=== PATIENT | female | born 1935 | race Caucasian/White ===

== ENCOUNTER 2022-03-25 07:00 | Outpatient (CLI) | payer MEDICARE, OTHER | END 2022-03-25 23:59 | disposition home or self-care (01) | LOC: LAB.S 07:00 | PROVIDERS: ATTEND Physician Assistant | DX: N39.0 Urinary tract infection, site not specified (principal) | CPT/HCPCS: 87077; 87086; 87181 ==

== ENCOUNTER 2022-05-16 10:20 | Outpatient (CLI) | payer MEDICARE, OTHER | END 2022-05-16 23:59 | disposition critical access hospital (66) | LOC: EMS 10:20 | DX: R53.81 Other malaise (principal); R60.0 Localized edema; M79.661 Pain in right lower leg; R73.9 Hyperglycemia, unspecified | CPT/HCPCS: A0425; A0427 ==

== ENCOUNTER 2022-05-16 10:47 | Inpatient (IN) | payer MEDICARE, OTHER ==
--- OUTSIDE RECORDS SUMMARY | 2022-05-16 11:07 | EXTERNAL MEDICAL SUMMARY RPT | Continuity of Care Document ---
:1935 Author Organization [facility] Address [address] [place] [address] Phone Care Team Providers Name Role Phone Unavailable Unavailable Unavailable Siddharth Harrison, Deuce Unavailable Unavailable Jose, Provider Unavailable Unavailable Allergies and Intolerances date description facility type (no date) [facility] (no date) [facility]unknown[facility] Encounters No information. Functional Status No information. Immunizations No information. Medications date description facility 2022-03-25 00:00 cephalexin [facility] 2022-03-25 00:00 cephalexin [facility] 2022-03-25 00:00 metoprolol tartrate [facility]-In [facility] 2022-03-26 00:00 metoprolol tartrate [facility]In [facility] 2022-03-28 00:00 metoprolol tartrate [facility]In [facility] 2022-03-29 00:00 metoprolol tartrate [facility]In [facility] 2022-03-25 00:00 hydroxychloroquine [facility] 2022-03-26 00:00 hydroxychloroquine [facility] [place] [facility] 2022-03-28 00:00 hydroxychloroquine [facility] [facility] 2022-03-29 00:00 hydroxychloroquine [facility] 2022-03-25 00:00 levothyroxine [facility] [place] [facility] 2022-03-26 00:00 [facility] 2022-03-28 00:00 levothyroxine [facility] 2022-03-29 00:00 levothyroxine [facility] 2022-03-25 00:00 prednisone [facility] 2022-03-26 00:00 prednisone [facility] 2022-03-28 00:00 prednisone [facility] 2022-03-29 00:00 prednisone [facility] 2022-03-25 00:00 cephalexin [facility] 2022-03-25 00:00 cephalexin [facility] 2022-03-25 00:00 ibuprofen [facility] 2022-03-26 00:00 ibuprofen [facility] 2022-03-28 00:00 ibuprofen [facility] 2022-03-29 00:00 ibuprofen [facility] 2022-03-25 00:00 hydroxychloroquine [facility] 2022-03-26 00:00 hydroxychloroquine [facility] 2022-03-28 00:00 hydroxychloroquine [facility] 2022-03-29 00:00 hydroxychloroquine [facility] 2022-03-25 00:00 metoprolol tartrate [facility]In [facility] 2022-03-26 00:00 metoprolol tartrate [facility]In [facility] 2022-03-28 00:00 metoprolol tartrate [facility]In [facility] 2022-03-29 00:00 metoprolol tartrate [facility]In [facility] 2022-03-25 00:00 prednisone [facility] 2022-03-26 00:00 prednisone [facility] 2022-03-28 00:00 prednisone [facility] 2022-03-29 00:00 prednisone [facility] 2022-03-25 00:00 ibuprofen [facility] 2022-03-26 00:00 ibuprofen [facility] 2022-03-28 00:00 ibuprofen [facility] 2022-03-29 00:00 ibuprofen [facility] 2022-03-25 00:00 omeprazole [facility] 2022-03-26 00:00 omeprazole [facility] 2022-03-28 00:00 omeprazole [facility] 2022-03-29 00:00 omeprazole [facility] 2022-03-25 00:00 prednisone [facility] 2022-03-26 00:00 prednisone [facility] 2022-03-28 00:00 prednisone [facility] 2022-03-29 00:00 prednisone [facility] 2022-03-25 00:00 prednisone [facility] 2022-03-26 00:00 prednisone [facility] 2022-03-28 00:00 prednisone [facility] 2022-03-29 00:00 prednisone [facility] 2022-03-25 00:00 amlodipine [facility] 2022-03-26 00:00 amlodipine [facility] 2022-03-28 00:00 amlodipine [facility] 2022-03-29 00:00 amlodipine [facility] 2022-03-25 00:00 cephalexin [facility] 2022-03-25 00:00 cephalexin [facility] 2022-03-25 00:00 hydroxychloroquine [facility] 2022-03-26 00:00 hydroxychloroquine [facility] 2022-03-28 00:00 hydroxychloroquine [facility] 2022-03-29 00:00 hydroxychloroquine [facility] 2022-03-25 00:00 levothyroxine [facility] 2022-03-26 00:00 levothyroxine [facility] 2022-03-28 00:00 levothyroxine [facility] 2022-03-29 00:00 levothyroxine [facility] 2022-03-25 00:00 levothyroxine [facility] 2022-03-26 00:00 levothyroxine [facility] 2022-03-28 00:00 levothyroxine [facility] 2022-03-29 00:00 levothyroxine [facility] 2022-03-25 00:00 amlodipine [facility] 2022-03-26 00:00 amlodipine [facility] 2022-03-28 00:00 amlodipine [facility] 2022-03-29 00:00 amlodipine [facility] 2022-03-25 00:00 cephalexin [facility] 2022-03-25 00:00 cephalexin [facility] 2022-03-25 00:00 metoprolol tartrate [facility]In [facility] 2022-03-26 00:00 metoprolol tartrate [facility]In [facility] 2022-03-28 00:00 metoprolol tartrate [facility]In [facility] 2022-03-29 00:00 metoprolol tartrate [facility]In [facility] 2022-03-25 00:00 amlodipine [facility] 2022-03-26 00:00 amlodipine [facility] 2022-03-28 00:00 amlodipine [facility] 2022-03-29 00:00 amlodipine [facility] 2022-03-25 00:00 losartan [facility] 2022-03-26 00:00 losartan [facility] 2022-03-28 00:00 losartan [facility] 2022-03-29 00:00 losartan [facility] 2022-03-25 00:00 losartan [facility] 2022-03-26 00:00 losartan [facility] 2022-03-28 00:00 losartan [facility] 2022-03-29 00:00 losartan [facility] 2022-03-25 00:00 omeprazole [facility] 2022-03-26 00:00 omeprazole [facility] 2022-03-28 00:00 omeprazole [facility] 2022-03-29 00:00 omeprazole [facility] 2022-03-25 00:00 ibuprofen [facility] 2022-03-26 00:00 ibuprofen [facility] 2022-03-28 00:00 ibuprofen [facility] 2022-03-29 00:00 ibuprofen [facility] 2022-03-25 00:00 amlodipine [facility] 2022-03-26 00:00 amlodipine [facility] 2022-03-28 00:00 amlodipine [facility] 2022-03-29 00:00 amlodipine [facility] 2022-03-25 00:00 omeprazole [facility] 2022-03-26 00:00 omeprazole [facility] 2022-03-28 00:00 omeprazole [facility] 2022-03-29 00:00 omeprazole [facility] 2022-03-25 00:00 omeprazole [facility] 2022-03-26 00:00 omeprazole [facility] 2022-03-28 00:00 omeprazole [facility] 2022-03-29 00:00 omeprazole [facility] 2022-03-25 00:00 ibuprofen [facility] 2022-03-26 00:00 ibuprofen [facility] 2022-03-28 00:00 ibuprofen [facility] 2022-03-29 00:00 ibuprofen [facility] 2022-03-25 00:00 losartan [facility] 2022-03-26 00:00 losartan [facility] 2022-03-28 00:00 losartan [facility] 2022-03-29 00:00 losartan [facility] 2022-03-25 00:00 metoprolol tartrate [facility]In [facility] 2022-03-26 00:00 metoprolol tartrate [facility]In [facility] 2022-03-28 00:00 metoprolol tartrate [facility] 2022-03-29 00:00 metoprolol tartrate [facility] 2022-03-25 00:00 levothyroxine [facility] 2022-03-26 00:00 levothyroxine [facility] 2022-03-28 00:00 levothyroxine [facility] 2022-03-29 00:00 levothyroxine [facility] 2022-03-25 00:00 hydroxychloroquine [facility] 2022-03-26 00:00 hydroxychloroquine [facility] 2022-03-28 00:00 hydroxychloroquine [facility] 2022-03-29 00:00 hydroxychloroquine [facility] 2022-03-25 00:00 losartan [facility] 2022-03-26 00:00 losartan [facility] 2022-03-28 00:00 losartan [facility] 2022-03-29 00:00 losartan [facility] Problems date description facility 2022-03-25 00:00 Acute urinary tract infection [facility] 2022-03-25 00:00 Acute urinary tract infection [facility] 2022-03-25 00:00 Urinary tract infection, site not [facility] 2022-03-25 00:00 Urinary tract infection, site not [facility] Procedures date description facility 2022-03-25 00:00 Visit Code Hold [facility] 2022-03-25 00:00 Visit Code Hold [facility] Results/Labs test date author facility value unit interpret ation Result panel 1 (unknown) (no date) (unknown) Walk-In (no value) (units (unk nown[facility] unknown) [facility] Result panel 2 (unknown) (no date) (unknown) Walk-In (no value) (units ([facility] nown[facility] Result panel 3 (unknown) (no date) (unknown) Walk[facility] (no value) (units ([facility] nown[facility] Result panel 4 (unknown) (no date) (unknown) Walk[facility] (no value) (units ([facility] nown[facility] Result panel 5 (unknown) (no date) (unknown) Walk[facility] (no value) (units ([facility] nown[facility] Result panel 6 (unknown) (no date) (unknown) [facility] (no value) (units ([facility] nown[facility] Result panel 7 (unknown) (no date) (unknown) Walk[facility] (no value) (units ([facility] nown[facility] Result panel 8 (unknown) (no date) (unknown) Walk-[facility] (no value) (units ([facility] nown[facility] Result panel 9 (unknown) (no date) (unknown) [facility] (no value) (units ([facility] nown) [facility] Result panel 10 (unknown) (no date) (unknown) Walk-[facility] (no value) (units ([facility] nown) [facility] Result panel 11 (unknown) (no date) (unknown) Walk-[facility] (no value) (units ([facility] nown) [facility] Result panel 12 (unknown) (no date) (unknown) Walk[facility] (no value) (units ([facility] nown) [facility] unknown[facility] Result panel 13 (unknown) (no date) (unknown) Walk-[facility] (no value) (units ([facility] nown) [facility] Result panel 14 (unknown) (no date) (unknown) Walk-[facility] (no value) (units ([facility] nown) [facility] Result panel 15 (unknown) (no date) (unknown) Walk[facility]In (no value) (units ([facility] nown) [facility] Result panel 16 (unknown) (no date) (unknown) Walk-[facility] (no value) (units ([facility] nown[facility] Result panel 17 (unknown) (no date) (unknown) Walk-In (no value) (units ([facility] nown[facility] unknown[facility] Result panel 18 (unknown) (no date) (unknown) Walk-In (no value) (units ([facility] nown[facility] Result panel 19 (unknown) (no date) (unknown) Walk-In (no value) (units ([facility] nown[facility] Result panel 20 (unknown) (no date) (unknown) Walk-[facility] (no value) (units ([facility] nown[facility] Result panel 21 (unknown) (no date) (unknown) Walk[facility] (no value) (units ([facility] nown) [facility] Result panel 22 (unknown) (no date) (unknown) Walk-In (no value) (units ([facility] nown[facility] Result panel 23 (unknown) (no date) (unknown) Walk-In (no value) (units ([facility] nown) [facility] Result panel 24 (unknown) (no date) (unknown) Walk-In (no value) (units ([facility] nown[facility] Result panel 25 (unknown) (no date) (unknown) Walk-In (no value) (units ([facility] nown) [facility] Result panel 26 (unknown) (no date) (unknown) Walk-In (no value) (units ([facility] nown) [facility] Result panel 27 (unknown) (no date) (unknown) Walk-In (no value) (units ([facility] nown) [facility] Result panel 28 (unknown) (no date) (unknown) Walk-In (no value) (units ([facility] nown) [facility] Result panel 29 (unknown) (no date) (unknown) Walk-In (no value) (units ([facility] nown) [facility] Result panel 30 (unknown) (no date) (unknown) Walk-In (no value) (units ([facility] nown) [facility] unknown[facility] Result panel 31 (unknown) (no date) (unknown) Walk-In (no value) (units ([facility] nown) [facility] Result panel 32 (unknown) (no date) (unknown) Walk-In (no value) (units ([facility] nown) [facility] Result panel 33 (unknown) (no date) (unknown) Walk[facility] (no value) (units ([facility] nown) [facility] Result panel 34 (unknown) (no date) (unknown) Walk-[facility] (no value) (units ([facility] nown[facility] Result panel 35 (unknown) (no date) (unknown) Walk[facility]In (no value) (units ([facility] nown) [facility] Result panel 36 (unknown) (no date) (unknown) Walk-In (no value) (units ([facility] nown[facility] Result panel 37 (unknown) (no date) (unknown) Walk-In (no value) (units ([facility] nown[facility] Result panel 38 (unknown) (no date) (unknown) Walk-In (no value) (units ([facility] nown[facility] Result panel 39 (unknown) (no date) (unknown) Walk-In (no value) (units ([facility] nown) [facility] Result panel 40 (unknown) (no date) (unknown) Walk-In (no value) (units ([facility] nown) [facility] Result panel 41 (unknown) (no date) (unknown) Walk-In (no value) (units ([facility] nown) [facility] Result panel 42 (unknown) (no date) (unknown) Walk-In (no value) (units ([facility] nown) [facility] Result panel 43 (unknown) (no date) (unknown) Walk-In (no value) (units ([facility] nown) [facility] Result panel 44 (unknown) (no date) (unknown) Walk-In (no value) (units ([facility] nown) [facility] Result panel 45 (unknown) (no date) (unknown) Walk-In (no value) (units ([facility] nown) [facility] Result panel 46 (unknown) (no date) (unknown) Walk-In (no value) (units ([facility] nown) [facility] Result panel 47 (unknown) (no date) (unknown) Walk-In (no value) (units ([facility] nown) [facility] Result panel 48 (unknown) (no date) (unknown) Walk-In (no value) (units ([facility] nown) [facility] Result panel 49 (unknown) (no date) (unknown) Walk-In (no value) (units ([facility] nown) [facility] Result panel 50 (unknown) (no date) (unknown) Walk-In (no value) (units ([facility] nown) [facility] Result panel 51 (unknown) (no date) (unknown) Walk-In (no value) (units ([facility] nown) [facility] Result panel 52 (unknown) (no date) (unknown) Walk-In (no value) (units ([facility] nown) [facility] Result panel 53 (unknown) (no date) (unknown) Walk-In (no value) (units ([facility] nown) [facility] Result panel 54 (unknown) (no date) (unknown) Walk-In (no value) (units ([facility] nown) [facility] Result panel 55 (unknown) (no date) (unknown) Walk-In (no value) (units ([facility] nown) [facility] Result panel 56 (unknown) (no date) (unknown) Walk-In (no value) (units ([facility] nown) [facility] Result panel 57 (unknown) (no date) (unknown) Walk-In (no value) (units ([facility] nown) [facility] Result panel 58 (unknown) (no date) (unknown) Walk-In (no value) (units ([facility] nown) [facility] Result panel 59 (unknown) (no date) (unknown) Walk-In (no value) (units ([facility] nown) [facility] Result panel 60 (unknown) (no date) (unknown) Walk-In (no value) (units ([facility] nown) [facility] unknown[facility] Social History date description facility 2022-03-25 00:00 Unknown if ever smoked [facility] 2022-03-26 00:00 Unknown if ever smoked [facility] [place] 2022-03-28 00:00 Unknown if ever smoked [facility] [place] 2022-03-29 00:00 Unknown if ever smoked [facility] [place] Vital Signs date measurement value units 2022-03-25 00:00 BMI 32.34 kg/m2 2022-03-25 00:00 BP_diastolic 75 mmHg 2022-03-25 00:00 BP_systolic 127 mmHg 2022-03-25 00:00 heart_rate 68 /min 2022-03-25 00:00 height_metric 152.4 cm 2022-03-25 00:00 height_standard 60 in 2022-03-25 00:00 respiration_rate 14 /min 2022-03-25 00:00 temperature_metric 36.44 C 2022-03-25 00:00 temperature_standard 97.6 F 2022-03-25 00:00 weight_metric 74.84 kg 2022-03-25 00:00 weight_standard 165 lb
--- NOTE | 2022-05-16 11:21 | ED Physician Documentation ---
History of Present Illness - Stated complaint Stated Complaint: POSS UTI/GENERAL WEAKNESS - Chief complaint Chief Complaint: General - History obtained from History obtained from: Patient - Additonal information Additional information: Patient is an 86-year-old female who resides at [facility] presenting for evaluation of right lower extremity swelling and pain. She has recently noticed increased discomfort to her right leg for the past several days. She has a shallow ulceration to the back of her leg and is unsure of how that came to be. She denies any recent injuries or falls.She has recently been treated for a urine infection. She was seen at the walk-in clinic this morning on the [place] and they were concerned that she could be septic because her heart rate was slightly elevated. EMS did give IV fluids. She reports feeling generally unwell but denies fever, chest pain, difficulty breathing, cough, abdominal pain, vomiting. She has been able to ambulate at her living facility with her wheelchair. Review of Systems Constitutional: denies: Fever Nose: denies: Congestion Cardiac: denies: Chest pain / pressure Respiratory: denies: Dyspnea GI: denies: Abdominal Pain : denies: Dysuria Skin: reports: Rash Musculoskeletal: reports: Extremity swelling. denies: Back pain Neurologic: denies: Headache PD PAST MEDICAL HISTORY - Present Medications Home Medications: Ambulatory Orders Medication Instructions Recorded Confirmed Hydroxychloroquine [Plaquenil] 200 mg PO DAILY 05/16/22 05/16/22 Ibuprofen [Motrin] 1 tablet PO TID 05/16/22 05/16/22 Levothyroxine [Synthroid] 88 mcg PO QDAC 05/16/22 05/16/22 Losartan [Cozaar] 50 mg PO DAILY 05/16/22 05/16/22 Metoprolol Tartrate [Lopressor] 100 mg PO BID 05/16/22 05/16/22 Sertraline [Zoloft] 25 mg PO DAILY 05/16/22 05/16/22 Sulfamethox/Trimeth 800/160 1 each PO BID #14 tablet 05/16/22 [Bactrim Ds 800/160] amLODIPine [Norvasc] 10 mg PO DAILY 05/16/22 05/16/22 cephALEXin [Keflex] 500 mg PO Q6H #28 cap 05/16/22 predniSONE [Deltasone] 10 mg PO 0800 05/16/22 05/16/22 - Allergies Allergies/Adverse Reactions: Allergies Allergy/AdvReac Type Severity Reaction Status Date / Time Benzodiazepines Allergy Unknown Verified 05/16/22 14:16 ciprofloxacin Allergy Unknown Verified 05/16/22 14:16 fentanyl Allergy Unknown Verified 05/16/22 14:16 meperidine Allergy Unknown Verified 05/16/22 14:16 morphine Allergy Unknown Verified 05/16/22 14:16 PD ED PE NORMAL - General General: No acute distress, Well developed/nourished. No: Alert and oriented X 3 (Alert and oriented to person, place and situation but not to time) - HEENT HEENT: Atraumatic - Neck Neck: Supple, no meningeal sign - Cardiac Cardiac: RRR, Strong equal pulses - Respiratory Respiratory: No respiratory distress, Clear bilaterally - Abdomen Abdomen: Normal bowel sounds, Soft, Non tender, Non distended - Extremities Extremities: Other (Bilateral lower extremity swelling, right greater than left, redness to right lower extremity with shallow ulceration to posterior calf, pedal pulses intact) - Neuro Neuro: body finisher 2-12 intact, No sensory deficit, Normal speech. No: Alert and oriented X 3 (Alert and oriented to person, place and situation but not to time), No motor deficit (R sided weakness - chronic) Results - Vitals Vitals: Vital Signs - 24 hr 05/16/22 05/16/22 05/16/22 10:54 12:50 14:07 Temperature 37.0 C Heart Rate 74 73 82 Respiratory 18 18 21 Rate Blood Pressure 133/80 H 127/81 H 126/98 H O2 Saturation 100 97 95 05/16/22 17:22 Temperature Heart Rate 71 Respiratory 18 Rate Blood Pressure 92/70 O2 Saturation 96 Oxygen O2 Source Room air - EKG (time done) 1112 Rate: Rate (enter#) (74) Rhythm: NSR Intervals: RBBB, Other (LAFB) Ischemia: No: ST elevation c/w ischemia - Labs Labs: Microbiology 05/16/22 12:45 Wound Culture - Preliminary Leg - Right Laboratory Tests 05/16/22 05/16/22 05/16/22 11:19 11:19 11:19 WBC 10.9 H RBC 3.97 L Hgb 10.4 L Hct 31.7 L MCV 79.8 L MCH 26.2 L MCHC 32.8 RDW 16.3 H Plt Count 281 MPV 8.8 Neut # (Auto) 9.4 H Lymph # (Auto) 0.7 L [place] # (Auto) 0.6 Eos # (Auto) 0.0 Baso # (Auto) 0.1 Absolute Nucleated RBC 0.00 Nucleated RBC % 0.0 Sodium 124 L Potassium 3.7 Chloride 92 L Carbon Dioxide 23 Anion Gap 9.0 BUN 16 Creatinine 0.9 Estimated GFR (MDRD) 60 L Glucose 287 H Lactic Acid 2.2 Calcium 8.7 Total Bilirubin 0.5 AST 19 ALT 21 Alkaline Phosphatase 50 B-Natriuretic Peptide Total Protein 5.7 L Albumin 3.0 L Globulin 2.7 Albumin/Globulin Ratio 1.1 Lipase 24 Urine Color Urine Clarity Urine pH Ur Specific [place] Urine Protein Urine Glucose (UA) Urine Ketones Urine Occult Blood Urine Nitrite Urine Bilirubin Urine Urobilinogen Ur Leukocyte Esterase Urine RBC Urine WBC Urine WBC Clumps Ur Epithelial Cells Ur Squamous Epith Cells Urine Bacteria Urine Yeast Ur Microscopic Review Urine Culture Comments 05/16/22 05/16/22 11:19 12:36 WBC RBC Hgb Hct MCV MCH MCHC RDW Plt Count MPV Neut # (Auto) Lymph # (Auto) [place] # (Auto) Eos # (Auto) Baso # (Auto) Absolute Nucleated RBC Nucleated RBC % Sodium Potassium Chloride Carbon Dioxide Anion Gap BUN Creatinine Estimated GFR (MDRD) Glucose Lactic Acid Calcium Total Bilirubin AST ALT Alkaline Phosphatase B-Natriuretic Peptide 436 H Total Protein Albumin Globulin Albumin/Globulin Ratio Lipase Urine Color YELLOW Urine Clarity CLOUDY Urine pH 6.0 Ur Specific [place] 1.015 Urine Protein TRACE Urine Glucose (UA) 250 H Urine Ketones NEGATIVE Urine Occult Blood TRACE-INTA Urine Nitrite NEGATIVE Urine Bilirubin NEGATIVE Urine Urobilinogen 0.2 (NORMAL) Ur Leukocyte Esterase LARGE H Urine RBC 0-5 Urine WBC >25 H Urine WBC Clumps PRESENT Ur Epithelial Cells FEW Renal Tubular Ur Squamous Epith Cells MANY Squamous H Urine Bacteria Many H Urine Yeast PRESENT Ur Microscopic Review INDICATED Urine Culture Comments NOT INDICATED PD Medical Decision Making - ED course Complexity details: reviewed results, re-evaluated patient, d/w patient, d/w family ED course: Patient presenting for evaluation of right lower extremity swelling and pain.Her vital signs appear stable. Her labs were reviewed and noted to have a hyponatremia of 124, mild anemia, hemoglobin of 10.9. Prior labs were obtained from [facility] and these appear similar. Patient and daughter also state that she has chronic hyponatremia.Lactic is negative. Ultrasounds of her lower extremities are negative for DVT. She also appears to have a urine infection.She initially appeared stable for outpatient management as she was answering questions appropriately. However while awaiting an ambulance ride back to her assisted living facility she started to have abnormalities with her behavior and almost appeared to be sundowning, becoming more argumentative and confused. She was not able to answer questions clearly. I spoke to the patient with her daughter Nadira on the phone and her daughter states that this is very abnormal for her. Normally the patient while she has dementia is still very sharp and does the [place] crossword puzzle every day.Patient is no longer able to tell me where she is, why she is here like she was earlier. 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 She was given a small dose of IM Haldol for her delirium. I discussed the case with the admitting hospitalist who graciously agrees to admit the patient for further management. We have agreed at this time to hold off on CT scan as patient may need further sedation to tolerate that and We have alternate explanations for her change in mental status which I believe are related to her 2 infections. Records reviewed from [facility] with previous labs obtained on July 27, 2021. The patient's sodium level at that time is 123. Her hemoglobin at that time is 10.5. These are similar to today's labs. Departure - Departure Disposition: 66 [facility] DC/Xfer Clinical Impression: Cellulitis of right leg, Chronic hyponatremia, UTI (urinary tract infection), Metabolic encephalopathy Condition: Stable
[2022-05-16 11:25] LABS: BASOPHILS # (AUTO) 0.1 10^3/uL (0.0-0.1); BASOPHILS % (AUTO) 0.5 %; EOSINOPHILS % (AUTO) 0.1 %; HCT - HEMATOCRIT 31.7 % (37.0-47.0); HGB - HEMOGLOBIN 10.4 g/dL (12.0-16.0); LYMPHOCYTES # (AUTO) 0.7 10^3/uL (1.5-3.5); LYMPHOCYTES % (AUTO) 6.3 %; MEAN CORPUSCULAR HEMOGLOBIN 26.2 pg (27.0-31.0); MEAN CORPUSCULAR HGB CONC 32.8 g/dL (32.0-36.0); MEAN CORPUSCULAR VOLUME 79.8 fL (81.0-99.0); MEAN PLATELET VOLUME 8.8 fL (7.9-10.8); MONOCYTES # (AUTO) 0.6 10^3/uL (0.0-1.0); MONOCYTES % (AUTO) 5.1 %; NEUTROPHILS # (AUTO) 9.4 10^3/uL (1.5-6.6); NEUTROPHILS % (AUTO) 86.4 %; PLT - PLATELET COUNT 281 10^3/uL (130-450); RED BLOOD COUNT 3.97 10^6/uL (4.20-5.40); RED CELL DISTRIBUTION WIDTH 16.3 % (12.0-15.0); WHITE BLOOD COUNT 10.9 x10^3/uL (4.8-10.8)
[2022-05-16 11:44] LABS: ALBUMIN/GLOBULIN RATIO 1.1 (1.0-2.2); BILIRUBIN,TOTAL 0.5 mg/dL (0.2-1.0); CALCIUM 8.7 mg/dL (8.5-10.3); CREATININE 0.9 mg/dL (0.4-1.0); POTASSIUM 3.7 mmol/L (3.5-5.0); TOTAL PROTEIN 5.7 g/dL (6.7-8.2)
--- NOTE | 2022-05-16 12:22 | XRAY Report ---
PROCEDURE: Chest 1 View X-Ray INDICATIONS: weakness TECHNIQUE: One view of the chest was acquired. COMPARISON: None. FINDINGS: Surgical changes and devices: None. Lungs and pleura: No pleural effusions or pneumothorax. Lungs are clear. Mediastinum: Mediastinal contours appear normal. Heart size is normal. Bones and chest wall: No suspicious bony lesions. Overlying soft tissues appear unremarkable. IMPRESSION: No evidence acute pulmonary process. Reviewed by: Mohsen Erazo MD on 05/16/2022 12:21 PM PST Approved by: Mohsen Erazo MD on 05/16/2022 12:21 PM PST Station ID: [id number]
[2022-05-16 12:46] LABS: BILIRUBIN,URINE NEGATIVE (NEGATIVE); GLUCOSE, URINE (UA) 250 mg/dL (NEGATIVE); KETONES,URINE (UA) NEGATIVE (NEGATIVE); LEUKOCYTE ESTERASE, URINE LARGE (NEGATIVE); NITRITE,URINE NEGATIVE (NEGATIVE); OCCULT BLOOD,URINE TRACE-INTA (NEGATIVE); PROTEIN,URINE TRACE mg/dL (NEGATIVE); UROBILINOGEN,URINE 0.2 (NORMAL) E.U./dL (NORMAL)
--- NOTE | 2022-05-16 12:47 | Ultrasound Report ---
PROCEDURE: Duplex Ext Veins Bilateral INDICATIONS: Omid Carrasco MD TECHNIQUE: Real-time imaging, as well as color and pulse Doppler interrogation, were performed of the deep veins of both legs from the inguinal ligament to the popliteal fossa. COMPARISON: None FINDINGS: The deep veins are normally compressible, and free of intraluminal thrombus. Color and pu lse Doppler demonstrate normal phasic intravascular flow. There is normal augmentation response to d istal compression maneuver. IMPRESSION: Negative bilateral lower extremity duplex ultrasound study for DVT. Reviewed by: Mohsen Erazo MD on 05/16/2022 12:46 PM PST Approved by: Mohsen Erazo MD on 05/16/2022 12:46 PM PST Station ID: [id number]
[2022-05-16 12:50] LABS: CLARITY,URINE CLOUDY (CLEAR)
[2022-05-16 13:03] LABS: RBC,URINE 0-5 /HPF (0-5); WBC CLUMPS,URINE PRESENT; WBC,URINE >25 /HPF (0-5)
[2022-05-16 13:04] LABS: BACTERIA,URINE Many /HPF (None Seen); EPITHELIAL CELLS,UR FEW Renal Tubular /HPF (<= Few); SQUAMOUS EPITHELIAL CELL,UR MANY Squamous (<= Few); YEAST,URINE PRESENT
[2022-05-16] MEDS ORDERED: SULFAMETH/TRIMETH DS 800/160 MG TABLET PO STA (14:08)
[2022-05-16] MEDS ORDERED: cephALEXin 250 MG CAPSULE PO STA (14:08)
[2022-05-16] MEDS ORDERED: cefTRIAXone 1 GM in SODIUM CHLORIDE 0.9% MINIBAG 100 ML IV STA (16:31)
[2022-05-16] MEDS ORDERED: HALOPERIDOL 5 MG/ML VIAL IM STA (16:34)
[2022-05-16] MEDS ORDERED: PIPERACILLIN/TAZOBACTAM 3.375 GM in SODIUM CHLORIDE 0.9% MINIBAG 100 ML IV STA (16:56)
[2022-05-16] MEDS ORDERED: ONDANSETRON 4 MG/2 ML VIAL IVP PRN (17:23)
[2022-05-16] MEDS ORDERED: SODIUM CHLORIDE FLUSH 0.9% 10 ML SYRINGE IVP PRN (17:23)
[2022-05-16] MEDS ORDERED: ACETAMINOPHEN 325 MG TABLET PO PRN (17:23)
--- NOTE | 2022-05-16 17:32 | HISTORY & PHYSICAL EXAMINATION ---
Chief Complaint - Chief Complaint Chief Complaint: BIBA due to tachycardia, confusion, leg redness History of Present Illness - Admitted From Admitted From:: ED - History Obtained From History obtained from: ED provider - History of Present Illness HPI Comment/Other: This is an 86-year-old female who used to live in [place] and then 1 year ago has moved into [facility] living [facility] [place]. She has diabetes, dementia and frequent UTIs. Today she had a visit at her facility by one of the providers of the [facility] who noticed that her right leg was red and swollen, had an ulcer on the posterior calf, she was mildly tachycardic and she was sent to the ER by ambulance. Patient has a history of frequent UTIs and was recently treated for UTI. She reported that she recently noticed increased discomfort to her right leg for the past several days. She has a shallow ulceration to the back of her leg and is unsure of how that came to be. She denies any recent injuries or falls. She says she has recently not felt well but cannot give details. There has been no fever apparently. A Doppler of the leg was done and showed no DVT. Her labs showed a WBC of 10.9 and serum sodium level of 124 (in review of labs from [place] done July 2021, her serum sodium was 123 then, and pt stated and daughter confirmed "she always has a low sodium"). The patient was felt to have cellulitis and also had an abnormal urinalysis, so felt to have a UTI. She was initially going to be discharged on oral antibiotics from the ED. Then the patient developed altered mental status, was speaking gibberish, seem to be hallucinating. The patient's daughter in [place] was contacted who spoke to the mother by phone and confirmed that this was not her usual mental status. In addition, the ER provider said that the confusion was different than how she had presented just several hours previously. The patient now was disoriented, trying to climb out of the ED gurney. A head CT was considered however with no other focal neurologic findings and given that she just had a normal neuro and mental status exam, it was felt that sedating her excessively with Benadryl or antipsychotics (because she is allergic to benzos) would not be of benefit, and therefore no head CT was done. The ED provider then reached out to me on the Hospitalist team and we discussed her management going forward. The patient will be admitted for altered mental status likely from infection, with a diabetic leg ulcer with cellulitis and a possible UTI. The patient has never been to this hospital before. We have no picture ID, no POLST form or advanced directives. The patient is currently encephalopathic and cannot make decisions. By default, her CODE STATUS will be Full Code. History - Past Medical History Cardiovascular: reports: None Respiratory: reports: None Neuro: reports: Dementia Endocrine/Autoimmune: reports: Type 2 diabetes : reports: Other (frequent UTIs) - Past Surgical History Other past surgical history: No other PMH or PSH are available since we have no records from [place] or from [place]. - Family & Social History Living arrangement: Assisted living Social History Notes: History of alcohol or cigarette use is unknown since the patient is confused and we have no outside records. She is going in and out of being disoriented and speaking gibberish. I was able to understand that she was born in [place]. Meds/Allgy - Home Medications Home Medications: Ambulatory Orders Medication Instructions Recorded Confirmed Hydroxychloroquine [Plaquenil] 200 mg PO DAILY 05/16/22 05/16/22 Ibuprofen [Motrin] 1 tablet PO TID 05/16/22 05/16/22 Levothyroxine [Synthroid] 88 mcg PO QDAC 05/16/22 05/16/22 Losartan [Cozaar] 50 mg PO DAILY 05/16/22 05/16/22 Metoprolol Tartrate [Lopressor] 100 mg PO BID 05/16/22 05/16/22 Sertraline [Zoloft] 25 mg PO DAILY 05/16/22 05/16/22 Sulfamethox/Trimeth 800/160 1 each PO BID #14 tablet 05/16/22 [Bactrim Ds 800/160] amLODIPine [Norvasc] 10 mg PO DAILY 05/16/22 05/16/22 cephALEXin [Keflex] 500 mg PO Q6H #28 cap 05/16/22 predniSONE [Deltasone] 10 mg PO 0800 05/16/22 05/16/22 - Allergies Allergies/Adverse Reactions: Allergies Allergy/AdvReac Type Severity Reaction Status Date / Time Benzodiazepines Allergy Unknown Verified 05/16/22 14:16 ciprofloxacin Allergy Unknown Verified 05/16/22 14:16 fentanyl Allergy Unknown Verified 05/16/22 14:16 meperidine Allergy Unknown Verified 05/16/22 14:16 morphine Allergy Unknown Verified 05/16/22 14:16 Review of Systems - All Other Systems All Other Systems: reports: Other (Since the patient is confused, no other symptoms are known except as described in the HPI.) Exam - Vital Signs Vital Signs: Vital Signs x48h Temp Pulse Resp BP Pulse Ox 05/16/22 17:22 71 18 92/70 96 05/16/22 14:07 82 21 126/98 H 95 05/16/22 12:50 73 18 127/81 H 97 05/16/22 10:54 37.0 C 74 18 133/80 H 100 - Physical Exam General Appearance: positive: No acute distress, Alert Eyes Bilateral: positive: Normal inspection, EOMI ENT: positive: ENT inspection nml, Dry mucous membranes, Other (Black lower teeth but all are intact) Neck: positive: Nml inspection, No JVD Respiratory: positive: No respiratory distress, Breath sounds nml Cardiovascular: positive: Regular rate & rhythm, Systolic murmur Abdomen: positive: Non-tender, No organomegaly, No distention Skin: positive: Warm, Dry, Other (Rash in inguinal fold) Extremities: positive: Other (Right calf has a shallow ulcer, dry, surrounding area has blotchy redness.) Neurologic/Psychiatric: positive: Other (She is going in and out of being oriented and speaking gibberish. She is moving all extremities spontaneously.) Conclusion/Plan - Problem List (1) AMS (altered mental status) Conclusion/Plan: Patient became altered within a matter of hours after being alert and oriented. The ED provider described this as if she was witnessing "sundowning". Possibly this is related to the patient's infections. She also has hyponatremia on current labs which may cause some confusion. According to the daughter speaking to the ED provider, the patient has had hyponatremia in the past, but it is unknown if that Na corrects into a normal range, or if her sodium is always low. When I met her, she was no longer agitated and trying to climb out of the bed. She was still speaking gibberish alternating with being oriented to place and able to tell me parts of her personal history. Plan: Admit to inpatient status. Treat the underlying infections Give IV fluids using NS to improve her sodium level (2) Diabetic leg ulcer Conclusion/Plan: She has a shallow ulcer on the posterior calf. Possibly this could be a pressure ulcer from sitting in a wheelchair. It appears to be the nidus of the cause of her cellulitis Plan: Begin empiric IV antibiotics after obtaining blood cultures and wound cultures (done in ED). Patient was to get p.o. Keflex and p.o. Bactrim and be discharged. She then had blcx taken and received a dose of IV Ceftriaxone and IV Zosyn with the plan to be an inpatient. Continue IV ceftriaxone and IV Zosyn Await wound and blood culture result (3) Cellulitis of right leg Conclusion/Plan: As above #2 Plan: Outline the area of redness, to watch its course (4) Bacteriuria Conclusion/Plan: Patient has high white count and bacteriuria however many squamous cells are present on the U/A. No culture was "indicated". Plan: We will repeat a UA and cx by obtaining it with a straight cath The empiric antibiotics to be chosen will also cover for a UTI. Continue IV ceftriaxone and IV Zosyn Await repeat U/A and blood culture results (5) Hyponatremia Conclusion/Plan: Given the current infection, this is likely hypovolemic hyponatremia Plan: Begin IV NS at a slow rate of 60 mL/h Follow serum sodium every 12 hours, the plan is to correct not faster than 6 to 8 mEq in 24 hours (6) DM type 2 (diabetes mellitus, type 2) Conclusion/Plan: Plan: We will begin a diabetic diet, hypoglycemia protocol, fingerstick checks before meals and at bedtime and order sliding scale insulin coverage Obtain A1c with morning labs (7) Dementia Conclusion/Plan: As per history Plan: Restart any home meds, once her med list is reconciled by pharmacy - Lab Results Fish Bones: 05/16/22 11:19 05/16/22 11:19 - Other Other Results/Comments: Attestation: The patient is expected to be discharged or transferred to another facility within the next 96 hours: Yes.
--- NOTE | 2022-05-16 17:52 | PHARMACY PROGRESS NOTE ---
- Best Possible Medication History Admit Date and Time: 05/16/22 2103 Processed by: Nursing Medication History completed: Yes Secondary Source(s): Insurance records As the person ultimately responsible for medication therapy, providers are able to order a medication from an existing home medication list in [facility] via the "Reconcile Routine" prior to Confirmation of that medication by collection support specialist. Such practice is discouraged except when the physician, in their clinical judgment, deems that a medical need exists for a medication without regard to previous use.
[2022-05-16 18:41] LABS: BILIRUBIN,URINE NEGATIVE (NEGATIVE); CLARITY,URINE CLOUDY (CLEAR); GLUCOSE, URINE (UA) 500 mg/dL (NEGATIVE); KETONES,URINE (UA) NEGATIVE (NEGATIVE); LEUKOCYTE ESTERASE, URINE MODERATE (NEGATIVE); NITRITE,URINE NEGATIVE (NEGATIVE); OCCULT BLOOD,URINE TRACE-INTA (NEGATIVE); PROTEIN,URINE NEGATIVE (NEGATIVE); UROBILINOGEN,URINE 0.2 (NORMAL) E.U./dL (NORMAL)
[2022-05-16 18:53] LABS: RBC,URINE 0-5 /HPF (0-5); WBC,URINE >25 /HPF (0-5)
[2022-05-16 18:54] LABS: BACTERIA,URINE Few /HPF (None Seen); SQUAMOUS EPITHELIAL CELL,UR FEW Squamous (<= Few); YEAST,URINE PRESENT
[2022-05-16] MEDS: SODIUM CHLORIDE 0.9% 1,000 ML IV SCH (18:59)
[2022-05-16] MEDS: PIPERACILLIN/TAZOBACTAM 3.375 GM in SODIUM CHLORIDE 0.9% MINIBAG 100 ML IV SCH (21:02)
[2022-05-16] MEDS: METOPROLOL TARTRATE 50 MG TABLET PO SCH (21:02)
[2022-05-16] MEDS: NYSTATIN POWDER 15 GM TOP SCH (21:08)
[2022-05-16] MEDS: INSULIN LISPRO 300 UNIT/3 ML PEN SUBQ SCH (21:09)
[2022-05-17] MEDS: SODIUM CHLORIDE FLUSH 0.9% 10 ML SYRINGE IVP SCH ×4 (01:30→22:51)
[2022-05-17] MEDS: PIPERACILLIN/TAZOBACTAM 3.375 GM in SODIUM CHLORIDE 0.9% MINIBAG 100 ML IV SCH (04:40)
[2022-05-17] MEDS: LEVOTHYROXINE 88 MCG TABLET PO SCH (06:14)
[2022-05-17 06:22] LABS: BASOPHILS # (AUTO) 0.1 10^3/uL (0.0-0.1); BASOPHILS % (AUTO) 0.6 %; EOSINOPHILS % (AUTO) 0.2 %; HCT - HEMATOCRIT 30.9 % (37.0-47.0); HGB - HEMOGLOBIN 10.1 g/dL (12.0-16.0); LYMPHOCYTES # (AUTO) 1.3 10^3/uL (1.5-3.5); LYMPHOCYTES % (AUTO) 12.2 %; MEAN CORPUSCULAR HGB CONC 32.7 g/dL (32.0-36.0); MEAN CORPUSCULAR VOLUME 79.6 fL (81.0-99.0); MEAN PLATELET VOLUME 8.8 fL (7.9-10.8); MONOCYTES # (AUTO) 0.6 10^3/uL (0.0-1.0); MONOCYTES % (AUTO) 5.7 %; NEUTROPHILS # (AUTO) 8.7 10^3/uL (1.5-6.6); NEUTROPHILS % (AUTO) 80.3 %; PLT - PLATELET COUNT 274 10^3/uL (130-450); RED BLOOD COUNT 3.88 10^6/uL (4.20-5.40); RED CELL DISTRIBUTION WIDTH 16.1 % (12.0-15.0); WHITE BLOOD COUNT 10.8 x10^3/uL (4.8-10.8)
[2022-05-17 06:35] LABS: CALCIUM 8.6 mg/dL (8.5-10.3); CREATININE 0.7 mg/dL (0.4-1.0); MAGNESIUM 1.7 mg/dL (1.7-2.8); PHOSPHORUS 3.7 mg/dL (2.5-4.6); POTASSIUM 3.5 mmol/L (3.5-5.0)
[2022-05-17] MEDS ORDERED: PREDNISONE 10 MG PO SCH (08:00)
[2022-05-17] MEDS: predniSONE 5 MG TABLET PO SCH (08:06)
[2022-05-17] MEDS: INSULIN LISPRO 300 UNIT/3 ML PEN SUBQ SCH ×4 (08:07→22:42)
[2022-05-17] MEDS: METOPROLOL TARTRATE 50 MG TABLET PO SCH ×2 (09:06→21:20)
[2022-05-17] MEDS: ENOXAPARIN 40 MG/0.4 ML SYRINGE SUBQ SCH (09:06)
[2022-05-17] MEDS: amLODIPine 5 MG TABLET PO SCH (09:10)
[2022-05-17] MEDS: LOSARTAN 50 MG TABLET PO SCH (09:10)
[2022-05-17 09:26] LABS: ESTIMATED AVERAGE GLUCOSE 266 mg/dL (70-100); HEMOGLOBIN A1c% 10.9 % (4.27-6.07)
[2022-05-17] MEDS: NYSTATIN POWDER 15 GM TOP SCH ×2 (10:32→22:41)
[2022-05-17] MEDS: SODIUM CHLORIDE 0.9% 1,000 ML IV SCH (11:19)
--- NOTE | 2022-05-17 13:51 | PROVIDER PROGRESS NOTE ---
Subjective - Prog Note Date Prog Note Date: 05/17/22 Prog Note Time: 14:03 - Subjective Pt reports feeling: No change Subjective: She is very annoyed with this. She knows that she is in the hospital. And she disagrees with why she is in the hospital. She says that nothing happened yesterday and she finds is all ridiculous. She was never disoriented. And states that she was brought here against her will and that she she was annoyed with this because we were making her do things and she wanted us to leave her alone. She denies any pain, shortness of breath. Current Medications - Current Medications Current Medications: Active Medications Acetaminophen (Acetaminophen 325 Mg Tablet) 650 mg PO Q4HR PRN PRN Reason: Pain 1 to 4, or Fever Amlodipine Besylate (Amlodipine 5 Mg Tablet) 10 mg PO DAILY [facility] Last Admin: 05/17/22 09:10 Dose: 10 mg Enoxaparin Sodium (Enoxaparin 40 Mg/0.4 Ml Syringe) 40 mg SUBQ DAILY [facility] Last Admin: 05/17/22 09:06 Dose: 40 mg Hydroxychloroquine Sulfate (Hydroxychloroquine 200 Mg Tablet) 200 mg PO DAILY [facility] Sodium Chloride (Normal Saline 0.9%) 1,000 mls @ 60 mls/hr IV .[id number] [facility] Last Admin: 05/17/22 11:19 Dose: 60 mls/hr Ceftriaxone Sodium 1 gm/ (Sodium Chloride) 100 mls @ 200 mls/hr IV 1600 [facility] Insulin Human Lispro (Insulin Lispro 300 Unit/3 Ml Pen) 1 - 5 unit SUBQ 0800,1 200,1700,2100 [facility]; Protocol Last Admin: 05/17/22 12:17 Dose: 2 unit Levothyroxine Sodium (Levothyroxine 88 Mcg Tablet) 88 mcg PO QDAC [facility] Last Admin: 05/17/22 06:14 Dose: 88 mcg Losartan Potassium (Losartan 50 Mg Tablet) 50 mg PO DAILY [facility] Last Admin: 05/17/22 09:10 Dose: 50 mg Metoprolol Tartrate (Metoprolol Tartrate 50 Mg Tablet) 100 mg PO BID [facility] Last Admin: 05/17/22 09:06 Dose: 100 mg Nystatin (Nystatin Powder 15 Gm) 1 applic TOP BID [facility] Last Admin: 05/17/22 10:32 Dose: Not Given Ondansetron HCl (Ondansetron 4 Mg/2 Ml Vial) 4 mg IVP Q6HR PRN PRN Reason: Nausea / Vomiting Prednisone (Prednisone 5 Mg Tablet) 10 mg PO DAILYWM [facility] Last Admin: 05/17/22 08:06 Dose: 10 mg Sertraline HCl (Sertraline 25 Mg Tablet) 25 mg PO DAILY [facility] Sodium Chloride (Sodium Chloride Flush 0.9% 10 Ml Syringe) 10 ml IVP PRN PRN PRN Reason: NEEDED PER PROVIDER ORDERS Sodium Chloride (Sodium Chloride Flush 0.9% 10 Ml Syringe) 10 ml IVP 0100,0900,1700 [facility] Last Admin: 05/17/22 09:05 Dose: Not Given Hydroxychloroquine [Plaquenil] 200 mg PO DAILY 05/16/22 Ibuprofen [Motrin] 1 tablet PO TID 05/16/22 Levothyroxine [Synthroid] 88 mcg PO QDAC 05/16/22 Losartan [Cozaar] 50 mg PO DAILY 05/16/22 Metoprolol Tartrate [Lopressor] 100 mg PO BID 05/16/22 Sertraline [Zoloft] 25 mg PO DAILY 05/16/22 amLODIPine [Norvasc] 10 mg PO DAILY 05/16/22 predniSONE [Deltasone] 10 mg PO 0800 05/16/22 Objective - Vital Signs/Intake & Output Reviewed Vital Signs: Yes Vital Signs: Vital Signs x48h Temp Pulse Resp BP BP Pulse Ox 05/17/22 09:06 129/70 05/17/22 07:35 36.6 C 72 18 138/82 H 97 Intake & Output: Intake & Output 05/14/22 05/15/22 05/16/22 05/17/22 23:59 23:59 23:59 23:59 Intake Total 320 1445 Output Total 150 850 Balance 170 595 - Objective General Appearance: positive: No acute distress, Alert, Other (Short statured moderately overweight elderly female who is in no acute distress. Speech is lucid, coherent) Eyes Bilateral: positive: PERRL, EOMI ENT: positive: No signs of dehydration Neck: positive: No JVD. negative: Stiff neck Respiratory: positive: No respiratory distress, Other (Diminished at the bases). negative: Wheezes, Rales, Rhonchi Cardiovascular: positive: Regular rate & rhythm, Systolic murmur Abdomen: positive: Other (Protuberant, obese, soft, nontender, normal bowel sounds) Skin: positive: Warm, Dry, Other (Black dry eschar over a right calf ulcer. Small rim of redness. No surrounding cellulitis, redness, heat or drainage) Extremities: positive: No pedal edema. negative: Full ROM (Right shoulder cannot be moved. She says that she has a rotator cuff problem there) Neurologic/Psychiatric: positive: CN's nml (2-12), Disoriented to time. negative: Motor nml (While legs are mobile, and flex and extend at the hip and knee, and she can plantar and dorsiflex, she does not have the strength to be able to stand. That is a chronic finding for her) - Lab Results Fish Bones: 05/17/22 06:14 05/17/22 06:14 Other Labs: Lab Results x24hrs 05/17/22 05/17/22 05/17/22 Range/Units 06:14 06:14 06:14 WBC 10.8 (4.8-10.8) x10^3/uL RBC 3.88 L (4.20-5.40) 10^6/uL Hgb 10.1 L (12.0-16.0) g/dL Hct 30.9 L (37.0-47.0) % MCV 79.6 L (81.0-99.0) fL MCH 26.0 L (27.0-31.0) pg MCHC 32.7 (32.0-36.0) g/dL RDW 16.1 H (12.0-15.0) % Plt Count 274 (130-450) 10^3/uL MPV 8.8 (7.9-10.8) fL Neut # (Auto) 8.7 H (1.5-6.6) 10^3/uL Lymph # (Auto) 1.3 L (1.5-3.5) 10^3/uL [place] # (Auto) 0.6 (0.0-1.0) 10^3/uL Eos # (Auto) 0.0 (0.0-0.7) 10^3/uL Baso # (Auto) 0.1 (0.0-0.1) 10^3/uL Absolute Nucleated RBC 0.00 x10^3/uL Nucleated RBC % 0.0 /100WBC Sodium 127 L (135-145) mmol/L Potassium 3.5 (3.5-5.0) mmol/L Chloride 93 L (101-111) mmol/L Carbon Dioxide 23 (21-32) mmol/L Anion Gap 11.0 (6-13) BUN 13 (6-20) mg/dL Creatinine 0.7 (0.4-1.0) mg/dL Estimated GFR (MDRD) 80 L (>89) Glucose 148 H (70-100) mg/dL Estimat Average Glucose 266 H (70-100) mg/dL Hemoglobin A1c % 10.9 H (4.27-6.07) % Calcium 8.6 (8.5-10.3) mg/dL Phosphorus 3.7 (2.5-4.6) mg/dL Magnesium 1.7 (1.7-2.8) mg/dL Urine Color Urine Clarity (CLEAR) Urine pH (5.0-7.5) PH Ur Specific [place] (1.002-1.030) Urine Protein (NEGATIVE) mg/dL Urine Glucose (UA) (NEGATIVE) mg/dL Urine Ketones (NEGATIVE) mg/dL Urine Occult Blood (NEGATIVE) Urine Nitrite (NEGATIVE) Urine Bilirubin (NEGATIVE) Urine Urobilinogen (NORMAL) E.U./dL Ur Leukocyte Esterase (NEGATIVE) Urine RBC (0-5) /HPF Urine WBC (0-5) /HPF Ur Squamous Epith Cells (<= Few) Urine Bacteria (None Seen) /HPF Urine Yeast Ur Microscopic Review Urine Culture Comments SARS-CoV-2 (PCR) 05/16/22 05/16/22 Range/Units 18:30 17:47 WBC (4.8-10.8) x10^3/uL RBC (4.20-5.40) 10^6/uL Hgb (12.0-16.0) g/dL Hct (37.0-47.0) % MCV (81.0-99.0) fL MCH (27.0-31.0) pg MCHC (32.0-36.0) g/dL RDW (12.0-15.0) % Plt Count (130-450) 10^3/uL MPV (7.9-10.8) fL Neut # (Auto) (1.5-6.6) 10^3/uL Lymph # (Auto) (1.5-3.5) 10^3/uL [place] # (Auto) (0.0-1.0) 10^3/uL Eos # (Auto) (0.0-0.7) 10^3/uL Baso # (Auto) (0.0-0.1) 10^3/uL Absolute Nucleated RBC x10^3/uL Nucleated RBC % /100WBC Sodium (135-145) mmol/L Potassium (3.5-5.0) mmol/L Chloride (101-111) mmol/L Carbon Dioxide (21-32) mmol/L Anion Gap (6-13) BUN (6-20) mg/dL Creatinine (0.4-1.0) mg/dL Estimated GFR (MDRD) (>89) Glucose (70-100) mg/dL Estimat Average Glucose (70-100) mg/dL Hemoglobin A1c % (4.27-6.07) % Calcium (8.5-10.3) mg/dL Phosphorus (2.5-4.6) mg/dL Magnesium (1.7-2.8) mg/dL Urine Color YELLOW Urine Clarity CLOUDY (CLEAR) Urine pH 7.0 (5.0-7.5) PH Ur Specific [place] 1.010 (1.002-1.030) Urine Protein NEGATIVE (NEGATIVE) mg/dL Urine Glucose (UA) 500 H (NEGATIVE) mg/dL Urine Ketones NEGATIVE (NEGATIVE) mg/dL Urine Occult Blood TRACE-INTA (NEGATIVE) Urine Nitrite NEGATIVE (NEGATIVE) Urine Bilirubin NEGATIVE (NEGATIVE) Urine Urobilinogen 0.2 (NORMAL) (NORMAL) E.U./dL Ur Leukocyte Esterase MODERATE H (NEGATIVE) Urine RBC 0-5 (0-5) /HPF Urine WBC >25 H (0-5) /HPF Ur Squamous Epith Cells FEW Squamous (<= Few) Urine Bacteria Few (None Seen) /HPF Urine Yeast PRESENT Ur Microscopic Review INDICATED Urine Culture Comments INDICATED SARS-CoV-2 (PCR) NOT DETECTED ABX Reporting Has patient been on IV antibiotics over the past 48 hours?: Yes Assessment/Plan - Problem List (1) AMS (altered mental status) Impression: Patient became altered within a matter of hours after being alert and oriented in the ER. The ED provider described this as if she was witnessing "ing". Possibly this is related to the patient's infections. Today she is alert, oriented to place and person but adamantly states she was not disoriented yesterday, just mad that people were "invading her personal space" and "telling her what to do." Social work and I discussed this patient's baseline and after conferring with her [facility] nurse and her daughter, this patient is a curmudgeon or cantankerous at baseline, so this is not a new thought process. She also has hyponatremia on current labs which may cause some confusion. According to the daughter speaking to the ED provider, the patient has had hyponatremia in the past, but it is unknown if that Na corrects into a normal range, or if her sodium is always low. When the admission hospitalist met her, she was agitated, trying to climb out of bed. She was still speaking gibberish and alternated that behavior with being able to say where she was. Today she is not agitated. She is cooperative although annoyed at all of us. There is no gibberish. Plan: Altered mental status seems to have resolved. I would attribute this to delir ium more from age and cognitive deficits and I would attribute it to infection. See my assessment and plan for cellulitis. Baseline status at her group home is wheelchair-bound. She scooted herself along using her legs. She is not able to sit up right now. Weak. I will have physical therapy evaluate and treat. Hopefully she can return to her assisted living facility tomorrow morning. (2) Diabetic leg ulcer Conclusion/Plan: On admission exam, she has a shallow ulcer on the posterior calf. Possibly this could be a pressure ulcer from sitting in a wheelchair. It appears to be the nidus of the cause of her cellulitis. Today the ulcer is black with a 4 mm rim of redness around it. NO spreading cellulitis. It is dry. Calf is nontender and no edema. In looking at the photo of yesterday, 2 today's exam, the rim of redness seems reduced. But otherwise no real change in exam between yesterday and today.Blood cultures have been received and are being processed. Superficial wound culture showing MSSA. Plan: She has received ceftriaxone and Zosyn for this ulcer. Considering I think the cellulitis is minimal, I will discontinue Zosyn and change only to ceftriaxone. I anticipate discharge tomorrow when she is evaluated by PT. I will discharge on Keflex since it is MSSA. If blood cultures indicate otherwise, I will change antibiotics at that time (3) Cellulitis of right leg Conclusion/Plan: As above #2 Plan: Outline the area of redness, to watch its course (4) Bacteriuria Conclusion/Plan: Patient has high white count and bacteriuria however many squamous cells are present on the U/A. No culture was "indicated". Plan: We will repeat a UA and cx by obtaining it with a straight cath The empiric antibiotics to be chosen will also cover for a UTI. Continue IV ceftriaxone and IV Zosyn Await repeat U/A and blood culture results (5) Hyponatremia Conclusion/Plan: Given the current infection, this is likely hypovolemic hyponatremia Plan: Begin IV NS at a slow rate of 60 mL/h Follow serum sodium every 12 hours, the plan is to correct not faster than 6 to 8 mEq in 24 hours (6) DM type 2 (diabetes mellitus, type 2) Conclusion/Plan: In reviewing her hemoglobin A1c of 10.9%, her average glucose is 266. She is not at goal at all and is moderately uncontrolled. In her assisted living facility setting, she is not on any diabetic medications. Here she is on sliding scale insulin. And glucose is 302 yesterday afternoon, 290 last night before bedtime. Today she has been 157, 211, 211 with our sliding scale. Treatment at home would be dietary modification and some exercise. This woman is described as a sedentary and not really using her legs. I also do not think that they have successful control of her diet considering her personality if she protest. Medications to consider would be metformin or sulfonylurea. However the latter is on the beers list. I would suggest starting metformin in the outpatient setting. In the meantime we will continue diabetic diet, hypoglycemic protocol, [id number] checks before each meal and bedtime, and sliding scale coverage. (7) Dementia Conclusion/Plan: As per history Plan: Resume sertraline. Medication list has been reconciled by pharmacy. That is the only antidepressant or behavioral medication on her list.
[2022-05-17] MEDS ORDERED: cefTRIAXone 1 GM in SODIUM CHLORIDE 0.9% MINIBAG 100 ML IV SCH (16:00)
[2022-05-18] MEDS: SODIUM CHLORIDE 0.9% 1,000 ML IV SCH (04:31)
[2022-05-18] MEDS ORDERED: COD LIVER OIL/ZINC OXIDE 113 GM TUBE TOP PRN (04:58)
[2022-05-18 05:18] LABS: BASOPHILS # (AUTO) 0.1 10^3/uL (0.0-0.1); BASOPHILS % (AUTO) 0.5 %; EOSINOPHILS % (AUTO) 0.4 %; HCT - HEMATOCRIT 31.6 % (37.0-47.0); HGB - HEMOGLOBIN 10.4 g/dL (12.0-16.0); LYMPHOCYTES # (AUTO) 1.6 10^3/uL (1.5-3.5); LYMPHOCYTES % (AUTO) 16.9 %; MEAN CORPUSCULAR HEMOGLOBIN 25.7 pg (27.0-31.0); MEAN CORPUSCULAR HGB CONC 32.9 g/dL (32.0-36.0); MEAN PLATELET VOLUME 8.9 fL (7.9-10.8); MONOCYTES # (AUTO) 0.6 10^3/uL (0.0-1.0); MONOCYTES % (AUTO) 6.4 %; NEUTROPHILS # (AUTO) 7.1 10^3/uL (1.5-6.6); NEUTROPHILS % (AUTO) 74.5 %; PLT - PLATELET COUNT 318 10^3/uL (130-450); RED BLOOD COUNT 4.05 10^6/uL (4.20-5.40); RED CELL DISTRIBUTION WIDTH 15.9 % (12.0-15.0); WHITE BLOOD COUNT 9.5 x10^3/uL (4.8-10.8)
[2022-05-18 05:23] LABS: CALCIUM 8.4 mg/dL (8.5-10.3); CREATININE 0.6 mg/dL (0.4-1.0)
[2022-05-18] MEDS: LEVOTHYROXINE 88 MCG TABLET PO SCH (07:01)
[2022-05-18] MEDS: INSULIN LISPRO 300 UNIT/3 ML PEN SUBQ SCH ×2 (08:56→12:09)
[2022-05-18] MEDS ORDERED: SERTRALINE 25 MG TABLET PO SCH (09:00)
[2022-05-18] MEDS ORDERED: HYDROXYCHLOROQUINE 200 MG TABLET PO SCH (09:00)
[2022-05-18] MEDS ORDERED: SULFAMETH/TRIMETH DS 800/160 MG TABLET PO SCH (09:00)
[2022-05-18] MEDS ORDERED: polyethylene glycoL 3350 17 GM PACKET PO SCH (09:00)
[2022-05-18] MEDS: ENOXAPARIN 40 MG/0.4 ML SYRINGE SUBQ SCH (09:18)
[2022-05-18] MEDS: POTASSIUM CHLOR 10 MEQ/100 ML 10 MEQ/100 ML BAG IV SCH ×3 (09:18→11:32)
[2022-05-18] MEDS: METOPROLOL TARTRATE 50 MG TABLET PO SCH (09:19)
[2022-05-18] MEDS: LOSARTAN 50 MG TABLET PO SCH (09:20)
[2022-05-18] MEDS: predniSONE 5 MG TABLET PO SCH (09:20)
[2022-05-18] MEDS: amLODIPine 5 MG TABLET PO SCH (09:20)
[2022-05-18] MEDS: NYSTATIN POWDER 15 GM TOP SCH (09:21)
[2022-05-18] MEDS: SODIUM CHLORIDE FLUSH 0.9% 10 ML SYRINGE IVP SCH (09:21)
--- NOTE | 2022-05-18 09:29 | Discharge Plan ---
Discharge Plan for SNF / [facility] - Discharge Plan And Transition Orders Problem Reviewed?: Yes Disposition: 01 Home, Self Care Condition: Stable Allergies and Adverse Reactions: Allergies Allergy/AdvReac Type Severity Reaction Status Date / Time Benzodiazepines Allergy Unknown Verified 05/16/22 14:16 ciprofloxacin Allergy Unknown Verified 05/16/22 14:16 fentanyl Allergy Unknown Verified 05/16/22 14:16 meperidine Allergy Unknown Verified 05/16/22 14:16 morphine Allergy Unknown Verified 05/16/22 14:16 Health Concerns: She has a history of dementia and frequent urinary tract infections as well as diabetes. She was brought to the emergency room because of increasing confusion, a fast heart rate, and in route by ambulance, a new redness of the right leg around the calf ulcers was noted. On admission her diabetes was found to be very uncontrolled. She received IV antibiotics, IV fluids for hydration, and insulin to control her glucose. Her A1c is 10.9%. There are no medications listed for diabetes in her home med list. Urine was contaminated and did not indicate a UTI. We felt that her infection was caused by cellulitis, mild, around the right calf ulcer.Within 24 hours she was back to baseline mental status. She is slightly disoriented. Is very adamant that none of this happened to her and that we were making it up. She really wanted to just go back "home". She is described as either bedbound or wheelchair-bound. We do try and have physical therapy work with her and she refused, vociferously. Plan of Treatment: She will need to be continued on some type of diabetic management. We would recommend Lantus 10 units at night. She should have a glucose check at least twice a day. I would not aim for tight control because of her age. However, t his needs to be addressed by her primary care provider depending on conversation between her, the family, and the patient. She needs 4 more days of antibiotics to help with the cellulitis of a Diabetic leg ulcer. She needs daily exam of her calf ulcer. The ulcer should be cleaned and dry with soap and water. Keep as dry as possible. Then put Xeroform dressing cut to size over the ulcer. Put nonadhesive dry Kerlix bandage. And then wrap this with an elastic type of circular bandage to keep it in place. She also has Cee intertrigo of her groin area. Topical nystatin cream should be placed daily after skin is cleaned with soap and water, then dried. Care Goals: I would recommend bath aids at least 3 times a week. She needs to have better skin care than she has now. To have control of her diabetes, and cure of the infection of her calf ulcer, and then eventual healing of the ulcer with normal skin Assessment: Demented elderly female who does not make decisions for herself. - SNF / [facility] Transition Orders Admit to (Facility): [facility] Under the care of (Name): Juliann Starr Discharge Diagnosis: 1. Altered mental status with delirium 2. Dementia 3. Diabetic leg ulcer 4. Cellulitis of right leg 5. Bacteriuria 6. Hyponatremia 7. Type 2 diabetes mellitus, uncontrolled with hyperglycemia, without complications, not on long-term insulin 8. Wheelchair dependence Medicare Certification Statement: Notify PCP of admission and forward orders to primary provider for signature. Other Notification Orders: Call PCP immediately if patient develops dyspnea, chest pain/tightness or edema. House Bowel Program: Yes Additional Bowel Program Orders: If no BM after 2 days, nurse may give M.O.M. 30ml PO PRN and/or ducolax Supp 1 NH and/or MARYANNE 250mg P.O., and/or senna 1-2 tabs PO. On day 3 nurse may give repeat above order until residents constipation is resolved. Annual Influenza Vaccine (between Nov 18 and June 17): Yes Two-step PPD per [facility] [id number] or approved exception documents: Yes Medication Orders: PLEASE REFER TO THE DISCHARGE MEDICATION LIST. Insulin Orders?: No - Medications New Prescriptions: Sulfamethox/Trimeth 800/160 [Bactrim Ds 800/160] 1 each PO BID #14 tablet Nystatin [Nystop] 1 applic TOP BID #1 each Bismuth Tribromoph/Petrolatum [Xeroform Non-Occlusive 4"X9'] 1 each TP DAILY #1 each - Diet Type: No added sugar Texture: Regular Liquids: Thin May have monthly special meal: Yes - Therapies | Activity Assistance Devices: Wheelchair Additional Instructions: This document was made in part using voice recognition software. While efforts are made to proofread this document, sound alike and grammatical errors may occur.
[2022-05-18 12:23] VITALS: BP 109/59
--- NOTE | 2022-05-19 08:42 | DISCHARGE SUMMARY ---
Discharge Summary Admit Date: 05/16/22 Discharge Date: 05/18/22 Discharging Provider: Tiffany Trujillo MD Primary Care Provider: Juliann Starr Code Status: Do Not Attempt Resuscitation Condition at Discharge: Stable Discharge Disposition: 01 Home, Self Care - DIAGNOSES Discharge Diagnoses with Status of Each Condition: 1. Altered mental status with delirium 2. Dementia 3. Diabetic leg ulcer 4. Cellulitis of right leg 5. Bacteriuria 6. Hyponatremia 7. Type 2 diabetes mellitus, uncontrolled with hyperglycemia, without complications, not on long-term insulin 8. Wheelchair dependence - HPI History of Present Illness: This is an 86-year-old female who used to live in [place] and then 1 year ago has moved into [facility] living [facility]. She has diabetes, dementia and frequent UTIs. Today she had a visit at her facility by one of the providers of the [facility] who noticed that her right leg was red and swollen, had an ulcer on the posterior calf, she was mildly tachycardic and she was sent to the ER by ambulance. Patient has a history of frequent UTIs and was recently treated for UTI. She reported that she recently noticed increased discomfort to her right leg for the past several days. She has a shallow ulceration to the back of her leg and is unsure of how that came to be. She denies any recent injuries or falls. She says she has recently not felt well but cannot give details. There has been no fever apparently. A Doppler of the leg was done and showed no DVT. Her labs showed a WBC of 10.9 and serum sodium level of 124 (in review of labs from [place] done July 2021, her serum sodium was 123 then, and pt stated and daughter confirmed "she always has a low sodium"). The patient was felt to have cellulitis and also had an abnormal urinalysis, so felt to have a UTI. She was initially going to be discharged on oral antibiotics from the ED. Then the patient developed altered mental status, was speaking gibberish, seem to be hallucinating. The patient's daughter in [place] was contacted who spoke to the mother by phone and confirmed that this was not her usual mental status. In addition, the ER provider said that the confusion was different than how she had presented just several hours previously. The patient now was disoriented, trying to climb out of the ED gurney. A head CT was considered however with no other focal neurologic findings and given that she just had a normal neuro and mental status exam, it was felt that sedating her excessively with Benadryl or antipsychotics (because she is allergic to benzos) would not be of benefit, and therefore no head CT was done. The ED provider then reached out to me on the Hospitalist team and we discussed her management going forward. The patient will be admitted for altered mental status likely from infection, with a diabetic leg ulcer with cellulitis and a possible UTI. The patient has never been to this hospital before. We have no picture ID, no POLST form or advanced directives. The patient is currently encephalopathic and cannot make decisions. By default, her CODE STATUS will be Full Code. - Past Medical History Cardiovascular: reports: None Respiratory: reports: None Neuro: reports: Dementia Endocrine/Autoimmune: reports: Type 2 diabetes : reports: Other (frequent UTIs) - Past Surgical History Other past surgical history: No other PMH or PSH are available since we have no records from [place] or from [place]. - CONSULTS | PROCEDURES Procedures: Chest x-ray without acute cardiopulmonary process Venous duplex study of bilateral legs do not show DVTs Right leg wound culture growing Staph aureus and Enterobacter cloacae Blood cultures negative Urine culture positive for yeast - HOSPITAL COURSE Hospital Course: She has a history of dementia and frequent urinary tract infections as well as diabetes. She was brought to the emergency room because of increasing confusion, a fast heart rate, and in route by ambulance, a new redness of the right leg around the calf ulcers was noted. On admission her diabetes was found to be very uncontrolled. She received IV antibiotics, IV fluids for hydration, and insulin to control her glucose. Her A1c is 10.9%. There are no medications listed for diabetes in her home med list. Urine was contaminated and did not indicate a UTI. We felt that her infection was caused by cellulitis, mild, around the right calf ulcer.Within 24 hours she was back to baseline mental status. She is slightly disoriented. Is very adamant that none of this happened to her and that we were making it up. She really wanted to just go back "home". She is described as either bedbound or wheelchair-bound. We do try and have physical therapy work with her and she refused, vociferously. Plan of Treatment: She will need to be continued on some type of diabetic management. We would recommend Lantus 10 units at night. She should have a glucose check at least twice a day. I would not aim for tight control because of her age. However, this needs to be addressed by her primary care provider depending on conversation between her, the family, and the patient. She needs 4 more days of antibiotics to help with the cellulitis of a Diabetic leg ulcer. She needs daily exam of her calf ulcer. The ulcer should be cleaned and dry with soap and water. Keep as dry as possible. Then put Xeroform dressing cut to size over the ulcer. Put nonadhesive dry Kerlix bandage. And then wrap this with an elastic type of circular bandage to keep it in place. She also has Cee intertrigo of her groin area. Topical nystatin cream should be placed daily after skin is cleaned with soap and water, then dried. Care Goals: I would recommend bath aids at least 3 times a week. She needs to have better skin care than she has now. To have control of her diabetes, and cure of the infection of her calf ulcer, and then eventual healing of the ulcer with normal skin At discharge temperature was 36.5. Heart rate 75. Blood pressure 109/59. Respirations 12. 98% on room air. She is an alert elderly white female who l ooks stated age. Slightly paranoid, usually feels were trying to get something over on her. Neck is supple. Lungs have diminished breath sounds at the bases but are clear and no increased respiratory effort. Regular rate and rhythm. Abdomen is soft, nontender. Normal bowel sounds. Bowel movement May 13. She is incontinent of urine and uses a pure wick with us. She has generalized weakness, but this seems to be chronic for her. She requires assistance with all activities of daily living. Legs have some edema but they are mobile. She is oriented to person, and that is about it. She does not know where she is, and she does not know why she is here and she just keeps on wanting to go home. Greater than 30 minutes was spent coordinating discharge - ALLERGIES Allergies/Adverse Reactions: Allergies Allergy/AdvReac Type Severity Reaction Status Date / Time Benzodiazepines Allergy Unknown Verified 05/16/22 14:16 ciprofloxacin Allergy Unknown Verified 05/16/22 14:16 fentanyl Allergy Unknown Verified 05/16/22 14:16 meperidine Allergy Unknown Verified 05/16/22 14:16 morphine Allergy Unknown Verified 05/16/22 14:16 - MEDICATIONS Home Medications: Ambulatory Orders Medication Instructions Recorded Confirmed Sulfamethox/Trimeth 800/160 1 each PO BID #14 tablet 05/16/22 [Bactrim Ds 800/160] Acetaminophen [Tylenol] 650 mg PO Q4HR PRN tab 05/18/22 Bismuth Tribromoph/Petrolatum 1 each TP DAILY #1 each 05/18/22 [Xeroform Non-Occlusive 4"X9'] Hydroxychloroquine [Plaquenil] 200 mg PO DAILY #0 05/18/22 05/16/22 Ibuprofen [Motrin] 1 tablet PO TID #0 05/18/22 05/16/22 Levothyroxine [Synthroid] 88 mcg PO QDAC #0 05/18/22 05/16/22 Losartan [Cozaar] 50 mg PO DAILY #0 05/18/22 05/16/22 Metoprolol Tartrate [Lopressor] 100 mg PO BID #0 05/18/22 05/16/22 Nystatin [Nystop] 1 applic TOP BID #1 each 05/18/22 Sertraline [Zoloft] 25 mg PO DAILY #0 05/18/22 05/16/22 amLODIPine [Norvasc] 10 mg PO DAILY #0 05/18/22 05/16/22 predniSONE [Deltasone] 10 mg PO 0800 #0 05/18/22 05/16/22 - LABS Result Diagrams: 05/18/22 05:07 05/18/22 05:07
== END 2022-05-18 12:50 | disposition home or self-care (01) | DRG 603 ==
LOC: EDUNIT# → ED 10:47 → MS2 17:23
PROVIDERS: ADMIT Internal Medicine; ATTEND Specialist
DX: L03.115 Cellulitis of right lower limb (principal); L97.219 Non-pressure chronic ulcer of right calf with unspecified severity; E87.1 Hypo-osmolality and hyponatremia; G93.41 Metabolic encephalopathy; D64.9 Anemia, unspecified; N39.0 Urinary tract infection, site not specified; I69.351 Hemiplegia and hemiparesis following cerebral infarction affecting right dominant side; R41.0 Disorientation, unspecified; Z20.822 Contact with and (suspected) exposure to COVID-19; I45.10 Unspecified right bundle-branch block; F03.90 Unspecified dementia, unspecified severity, without behavioral disturbance, psychotic disturbance, mood disturbance, and anxiety; E11.622 Type 2 diabetes mellitus with other skin ulcer; E11.65 Type 2 diabetes mellitus with hyperglycemia; R00.0 Tachycardia, unspecified; E66.9 Obesity, unspecified; L30.4 Erythema intertrigo; Z68.30 Body mass index [BMI] 30.0-30.9, adult; Z99.3 Dependence on wheelchair
CPT/HCPCS: 36415; 71045; 80048; 80053; 81001; 83036; 83605; 83690; 83735; 83880; 84100; 85025; 87040; 87070; 87077; 87086; 87181; 87205; 87635; 93005; 93970; 96372; 96374; 99285; A9270; J1650; J7512; 81003

== ENCOUNTER 2022-06-15 08:00 | Outpatient (CLI) | payer MEDICARE, OTHER | END 2022-06-15 23:59 | disposition home or self-care (01) | LOC: LAB.R 08:00 | PROVIDERS: ATTEND Physician Assistant | DX: S81.801D Unspecified open wound, right lower leg, subsequent encounter (principal) | CPT/HCPCS: 87070; 87077; 87181; 87205 ==

== ENCOUNTER 2022-06-30 16:45 | Outpatient (CLI) | payer MEDICARE, OTHER | END 2022-06-30 21:36 | disposition critical access hospital (66) | LOC: EMS 16:45 | DX: S81.801A Unspecified open wound, right lower leg, initial encounter (principal); X58.XXXA Exposure to other specified factors, initial encounter | CPT/HCPCS: A0425; A0429 ==

== ENCOUNTER 2022-06-30 17:12 | Emergency (ER) | payer MEDICARE, OTHER ==
[2022-06-30 17:28] VITALS: BP 128/74
[2022-06-30] MEDS ORDERED: CLINDAMYCIN 150 MG CAPSULE PO STA (17:42)
--- NOTE | 2022-06-30 17:46 | ED Physician Documentation ---
History of Present Illness - Stated complaint Stated Complaint: R CALF WOUND - Chief complaint Chief Complaint: Wound - History obtained from History obtained from: Patient - History of Present Illness Timing: Chronic Pain level max: 0 Pain level now: 0 - Additonal information Additional information: 86-year-old female with a chronic right leg wound. She has been seen 3-4 times per week by wound care. She denies any fevers. She is unsure what the wound usually looks like. Does have a history of dementia. Family is in [place]. She thinks that she is still on antibiotics, but the MAR from the shelter does not show any antibiotics currently. The facility that she lives at states that the wound is getting worse. The patient does not feel that it is getting worse. Review of Systems Constitutional: denies: Fever, Chills Musculoskeletal: denies: Neck pain, Back pain Neurologic: denies: Headache PD PAST MEDICAL HISTORY - Past Medical History Cardiovascular: None Respiratory: None Neuro: Dementia Endocrine/Autoimmune: Type 2 diabetes : Other - Present Medications Home Medications: Ambulatory Orders Medication Instructions Recorded Confirmed Sulfamethox/Trimeth 800/160 1 each PO BID #14 tablet 05/16/22 [Bactrim Ds 800/160] Acetaminophen [Tylenol] 650 mg PO Q4HR PRN tab 05/18/22 Bismuth Tribromoph/Petrolatum 1 each TP DAILY #1 each 05/18/22 [Xeroform Non-Occlusive 4"X9'] Hydroxychloroquine [Plaquenil] 200 mg PO DAILY #0 05/18/22 05/16/22 Ibuprofen [Motrin] 1 tablet PO TID #0 05/18/22 05/16/22 Levothyroxine [Synthroid] 88 mcg PO QDAC #0 05/18/22 05/16/22 Losartan [Cozaar] 50 mg PO DAILY #0 05/18/22 05/16/22 Metoprolol Tartrate [Lopressor] 100 mg PO BID #0 05/18/22 05/16/22 Nystatin [Nystop] 1 applic TOP BID #1 each 05/18/22 Sertraline [Zoloft] 25 mg PO DAILY #0 05/18/22 05/16/22 amLODIPine [Norvasc] 10 mg PO DAILY #0 05/18/22 05/16/22 predniSONE [Deltasone] 10 mg PO 0800 #0 05/18/22 05/16/22 clindamycin HCL [Cleocin HCl] 300 mg PO Q6H #40 cap 06/30/22 - Allergies Allergies/Adverse Reactions: Allergies Allergy/AdvReac Type Severity Reaction Status Date / Time Benzodiazepines Allergy Unknown Verified 05/16/22 14:16 ciprofloxacin Allergy Unknown Verified 05/16/22 14:16 fentanyl Allergy Unknown Verified 05/16/22 14:16 meperidine Allergy Unknown Verified 05/16/22 14:16 morphine Allergy Unknown Verified 05/16/22 14:16 - Social History Smoking Status: Unknown if ever smoked PD ED PE NORMAL - Vitals Vital signs reviewed: Yes - General General: No acute distress, Well developed/nourished, Other (Patient is alert, oriented to person and place, disoriented to time. Baseline for patient) - HEENT HEENT: Moist mucous membranes - Neck Neck: Supple, no meningeal sign - Cardiac Cardiac: RRR - Respiratory Respiratory: No respiratory distress, Clear bilaterally - Derm Derm: Warm and dry - Extremities Extremities: Other (There is small amount of cellulitis on the right lower extremity. There is mostly the posterior calf that has open and draining wound, along with the lateral aspect of the right lower leg. NVI) Results - Vitals Vitals: Vital Signs - 24 hr 06/30/22 17:12 Temperature 37.0 C Heart Rate 66 Respiratory 16 Rate Blood Pressure 128/74 O2 Saturation 100 Oxygen O2 Source Room air - Labs Labs: Microbiology 06/30/22 17:55 Wound Culture - Preliminary Right Lower Extremity PD Medical Decision Making - ED course Complexity details: considered differential, d/w patient ED course: Patient does have a right lower extremity wound, mild cellulitis. No fevers. No abnormal vital signs. Patient thinks that it looks the same as it usually does. We will place her back on antibiotics. Wound culture obtained. We will have her follow-up closely with her doctor, she may benefit from wound care at the hospital if transportation can be arranged with her living facility. This document was made in part using voice recognition software. While efforts are made to proofread this document, sound alike and grammatical errors may occur. Departure - Departure Disposition: 01 Home, Self Care Clinical Impression: Diabetic leg ulcer Cellulitis Qualifiers: Site of cellulitis: extremity Site of cellulitis of extremity: lower extremity Laterality: right Qualified Code(s): L03.115 - Cellulitis of right lower limb Condition: Good Instructions: ED Infec Skin Cellulitis Follow-Up: Paradise Duff PA [Provider Admit Priv/Credential] - Within 3 Days Prescriptions: clindamycin HCL [Cleocin HCl] 300 mg PO Q6H #40 cap Comments: The prescription was sent to [facility]. The first dose of antibiotics was given tonight. It is recommended that she continue wound care, she may benefit from wound care at the hospital. Her primary care provider can help arrange this. A wound culture was sent as well. This can also be followed up by her PCP. Discharge Date/Time: 06/30/22 19:20
== END 2022-06-30 19:20 | disposition home or self-care (01) ==
LOC: EDUNIT# → ED 17:12
DX: E11.622 Type 2 diabetes mellitus with other skin ulcer (principal); L03.115 Cellulitis of right lower limb; F03.90 Unspecified dementia, unspecified severity, without behavioral disturbance, psychotic disturbance, mood disturbance, and anxiety; R41.0 Disorientation, unspecified
CPT/HCPCS: 87070; 87077; 87181; 87205; 99283; 99284; A9270

== ENCOUNTER 2022-06-30 19:22 | Outpatient (CLI) | payer MEDICARE, OTHER | END 2022-06-30 23:59 | disposition home or self-care (01) | LOC: EMS 19:22 | PROVIDERS: ATTEND Emergency Medicine | DX: R41.0 Disorientation, unspecified (principal); S81.801A Unspecified open wound, right lower leg, initial encounter; X58.XXXA Exposure to other specified factors, initial encounter; F03.90 Unspecified dementia, unspecified severity, without behavioral disturbance, psychotic disturbance, mood disturbance, and anxiety | CPT/HCPCS: A0425; A0428 ==